=== PATIENT | male | born 1990 | race American Indian/Alaskan Native ===

== ENCOUNTER 2017-12-08 09:29 | Emergency (ER) | payer MEDICAID ==
[2017-12-08 09:38] VITALS: BP 131/93
--- NOTE | 2017-12-08 11:46 | Emergency Department Report ---
ED Lower Extremity HPI - General Chief Complaint: Extremity Injury, Lower Stated Complaint: LEFT FOOT INJURY Time Seen by Provider: 12/08/17 11:40 Source: patient Mode of arrival: Ambulatory Limitations: No Limitations - History of Present Illness MD Complaint: foot injury -: days(s) (9 days ago) Injury: Foot: Left Type of Injury: blunt Place: work Severity: moderate Severity scale (0 -10): 3 - Related Data Previous Rx's Medication Instructions Recorded Last Taken Type Amoxicillin [Trimox CAP] 500 mg PO Q8H #30 capsule 09/16/14 Unknown Rx HYDROcodone/APAP 10-325 [[place] 1 each PO Q6HR PRN #12 tablet 09/16/14 Unknown Rx 10/325] Allergies Allergy/AdvReac Type Severity Reaction Status Date / Time No Known Allergies Allergy Verified 09/16/14 21:18 ED Review of Systems ROS: Stated complaint: LEFT FOOT INJURY Other details as noted in HPI Comment: All other systems reviewed and negative Constitutional: denies: chills Cardiovascular: denies: chest pain Gastrointestinal: denies: abdominal pain ED Past Medical Hx - Past Medical History Previous Medical History?: No - Surgical History Past Surgical History?: No - Social History Smoking Status: Never Smoker Substance Use Type: Alcohol - Medications Home Medications: Home Medications Medication Instructions Recorded Confirmed Last Taken Type Amoxicillin [Trimox CAP] 500 mg PO Q8H #30 capsule 09/16/14 Unknown Rx HYDROcodone/APAP 10-325 [[place] 1 each PO Q6HR PRN #12 tablet 09/16/14 Unknown Rx 10/325] ED Physical Exam - General Limitations: No Limitations General appearance: alert, in no apparent distress - Eye Eye exam: Present: normal appearance - ENT ENT exam: Present: normal exam - Cardiovascular Cardiovascular Exam: Present: regular rate, normal rhythm, normal heart sounds - Extremities Exam Extremities exam: Present: other (left great toe tenderness, no deformity) ED Course Vital Signs 12/08/17 09:34 Temperature 98.9 F Pulse Rate 65 Respiratory 20 Rate Blood Pressure 131/93 O2 Sat by Pulse 97 Oximetry ED Lower Extremity MDM - Radiology Data Radiology results: report reviewed Left great toe x-ray showed no acute abnormality. Critical care attestation.: If time is entered above; I have spent that time in minutes in the direct care of this critically ill patient, excluding procedure time. ED Disposition Clinical Impression: Contusion of great toe, left Disposition: DC-01 TO HOME OR SELFCARE Is pt being admited?: No Condition: Stable Instructions: Foot Contusion (ED) Referrals: PRIMARY CARE, [Primary Care Provider] - 3-5 Days
--- NOTE | 2017-12-08 12:58 | XRay Report ---
LEFT TOES, 3 VIEWS History: Pain. The bony architecture is intact. Bony alignment is normal. No soft tissue abnormalities are seen. The joint spaces appear preserved. IMPRESSION: Normal left toes.
== END 2017-12-08 13:10 | disposition home or self-care (01) ==
LOC: ED 09:29
DX: S90.112A Contusion of left great toe without damage to nail, initial encounter (principal); X58.XXXA Exposure to other specified factors, initial encounter; Y93.89 Activity, other specified; Y92.89 Other specified places as the place of occurrence of the external cause; Y99.8 Other external cause status
CPT/HCPCS: 99283

== ENCOUNTER 2018-11-30 09:26 | Emergency (ER) | payer MEDICAID ==
[2018-11-30 09:42] VITALS: BP 137/82
--- NOTE | 2018-11-30 11:22 | Emergency Department Report ---
ED Upper Extremity Inj HPI - General Chief Complaint: Extremity Injury, Upper Stated Complaint: L WRIST SWOLLEN/PAIN Time Seen by Provider: 11/30/18 11:01 Source: patient Mode of arrival: Ambulatory Limitations: No Limitations - History of Present Illness Initial Comments: 28-year-old male with wrist pain after lifting boxes at work yesterday. Denies fall or any other trauma. Patient reports mild swelling. Denies numbness or tingling in the hand. MD Complaint: Injury to:: left, wrist -: days(s) (1) Place: work Improves With: immobilization Worsens With: movement of extremity Associated Symptoms: denies other symptoms - Related Data Previous Rx's Medication Instructions Recorded Last Taken Type Amoxicillin [Trimox CAP] 500 mg PO Q8H #30 capsule 09/16/14 Unknown Rx HYDROcodone/APAP 10-325 [[place] 1 each PO Q6HR PRN #12 tablet 09/16/14 Unknown Rx 10/325] Naproxen [Naprosyn] 500 mg PO BID #14 tablet 12/08/17 Unknown Rx Naproxen [Naprosyn] 500 mg PO BID #20 tablet 11/30/18 Unknown Rx Allergies Allergy/AdvReac Type Severity Reaction Status Date / Time No Known Allergies Allergy Verified 11/30/18 09:30 ED Review of Systems ROS: Stated complaint: L WRIST SWOLLEN/PAIN Other details as noted in HPI Comment: All other systems reviewed and negative Musculoskeletal: arthralgia Neurological: denies: numbness, paresthesias ED Past Medical Hx - Past Medical History Previous Medical History?: No - Surgical History Past Surgical History?: No - Social History Smoking Status: Never Smoker Substance Use Type: None - Medications Home Medications: Home Medications Medication Instructions Recorded Confirmed Last Taken Type Amoxicillin [Trimox CAP] 500 mg PO Q8H #30 capsule 09/16/14 Unknown Rx HYDROcodone/APAP 10-325 [[place] 1 each PO Q6HR PRN #12 tablet 09/16/14 Unknown Rx 10/325] Naproxen [Naprosyn] 500 mg PO BID #14 tablet 12/08/17 Unknown Rx Naproxen [Naprosyn] 500 mg PO BID #20 tablet 11/30/18 Unknown Rx ED Physical Exam - General Limitations: No Limitations General appearance: alert, in no apparent distress - Head Head exam: Present: atraumatic, normocephalic - Eye Eye exam: Present: normal appearance - ENT ENT exam: Present: mucous membranes moist - Neck Neck exam: Present: normal inspection - Respiratory Respiratory exam: Present: normal lung sounds bilaterally. Absent: respiratory distress - Cardiovascular Cardiovascular Exam: Present: regular rate, normal rhythm - GI/Abdominal GI/Abdominal exam: Absent: distended - Extremities Exam Extremities exam: Present: other (mild left wrist swelling, ROM intact, no deformity noted) - Neurological Exam Neurological exam: Present: alert, oriented X3 - Psychiatric Psychiatric exam: Present: normal affect, normal mood - Skin Skin exam: Present: warm, dry, intact, normal color ED Course Vital Signs 11/30/18 09:41 Temperature 97.5 F L Pulse Rate 63 Respiratory 18 Rate Blood Pressure 137/82 O2 Sat by Pulse 99 Oximetry ED Medical Decision Making - Differential Diagnosis wrist sprain, carpal tunnel Critical care attestation.: If time is entered above; I have spent that time in minutes in the direct care of this critically ill patient, excluding procedure time. ED Disposition Clinical Impression: Left wrist sprain Disposition: DC- TO HOME OR SELFCARE Is pt being admited?: No Condition: Stable Instructions: Wrist Sprain (ED) Prescriptions: Naproxen [Naprosyn] 500 mg PO BID #20 tablet Referrals: MARIAH DIAZ MD [Staff Physician] - 3-5 Days Time of Disposition: 11:22
== END 2018-11-30 11:36 | disposition home or self-care (01) ==
LOC: ED 09:26
DX: S63.502A Unspecified sprain of left wrist, initial encounter (principal); X50.0XXA Overexertion from strenuous movement or load, initial encounter; Y93.89 Activity, other specified; Y92.89 Other specified places as the place of occurrence of the external cause; Y99.0 Civilian activity done for income or pay
CPT/HCPCS: 99283

== ENCOUNTER 2021-05-31 14:45 | Emergency (ER) | payer MEDICAID, OTHER ==
[2021-05-31] MEDS ORDERED: MECLIZINE 25 MG TAB PO ONE (15:11)
--- NOTE | 2021-05-31 15:38 | XRay Report ---
CHEST 2 VIEWS INDICATION / CLINICAL INFORMATION: Shortness of breath, chest pain. COMPARISON: None available. FINDINGS: SUPPORT DEVICES: None. HEART / MEDIASTINUM: A calcified left hilar node is noted. There is mild prominence of the central va sculature. No other significant abnormality. LUNGS / PLEURA: No significant pulmonary abnormality. No significant pleural effusion. No pneumothora x. ADDITIONAL FINDINGS: No significant additional findings. IMPRESSION: Mild prominence of the central vasculature without cardiomegaly or distinct pulmonary edema. No other acute findings. Signer Name: Matt Chicas MD Signed: 05/31/2021 3:34 PM Workstation Name: [id number]
[2021-05-31 15:53] LABS: Basophils % (Auto) 1.2 % (0.0-1.8); Eosinophils % (Auto) 0.8 % (0.0-4.3); Hematocrit 43.2 % (35.5-45.6); Hemoglobin 13.8 gm/dl (11.8-15.2); Lymphocytes # (Auto) 1.1 K/mm3 (1.2-5.4); Lymphocytes % (Auto) 28.7 % (13.4-35.0); Mean Corpuscular HGB Conc 32 % (32-34); Mean Corpuscular Volume 86 fl (84-94); Monocytes # (Auto) 0.4 K/mm3 (0.0-0.8); Monocytes % (Auto) 8.8 % (0.0-7.3); Platelet Count 228 K/mm3 (140-440); Red Blood Count 5.04 M/mm3 (3.65-5.03); Red Cell Distribution Width 13.3 % (13.2-15.2)
[2021-05-31 16:12] VITALS: BP 144/83
[2021-05-31 16:15] LABS: Alanine Aminotransferase 36 units/L (7-56); Albumin 4.7 g/dL (3.9-5); BUN/Creatinine Ratio 8; Blood Urea Nitrogen 10 mg/dL (9-20); Calcium 9.4 mg/dL (8.4-10.2); Hemolysis Index 11
--- NOTE | 2021-05-31 16:33 | Emergency Department Report ---
ED Dizziness HPI - General Chief Complaint: Dizziness Stated Complaint: DIZZINESS Time Seen by Provider: 05/31/21 15:02 Source: patient, family Mode of arrival: Ambulatory Limitations: No Limitations - History of Present Illness Initial Comments: Patient is a 30-year-old male presents emergency room complaints of dizziness that occurred earlier today while he was at work. He states it felt like the room is spinning. He states he then began to feel some chest tightness and shortness of breath. He states it lasted for a couple of hours but then imp roved. He denies any vision changes, numbness, weakness, speech disturbance, gait disturbance, fever, vomiting, diarrhea. PMhx borderline HTN. No allergies to medications. - Related Data Previous Rx's Medication Instructions Recorded Last Taken Type Amoxicillin [Trimox CAP] 500 mg PO Q8H #30 capsule 09/16/14 Unknown Rx HYDROcodone/APAP 10-325 [[place] 1 each PO Q6HR PRN #12 tablet 09/16/14 Unknown Rx 10/325] Naproxen [Naprosyn] 500 mg PO BID #14 tablet 12/08/17 Unknown Rx Naproxen [Naprosyn] 500 mg PO BID #20 tablet 11/30/18 Unknown Rx Meclizine [Antivert] 25 mg PO TID PRN #14 tablet 05/31/21 Unknown Rx Allergies Allergy/AdvReac Type Severity Reaction Status Date / Time No Known Allergies Allergy Verified 11/30/18 09:30 ED Review of Systems ROS: Stated complaint: DIZZINESS Other details as noted in HPI Comment: All other systems reviewed and negative ED Past Medical Hx - Past Medical History Previous Medical History?: Yes Hx HIV: Yes - Surgical History Past Surgical History?: No - Social History Smoking Status: Never Smoker Substance Use Type: Alcohol - Medications Home Medications: Home Medications Medication Instructions Recorded Confirmed Last Taken Type Amoxicillin [Trimox CAP] 500 mg PO Q8H #30 capsule 09/16/14 Unknown Rx HYDROcodone/APAP 10-325 [[place] 1 each PO Q6HR PRN #12 tablet 09/16/14 Unknown Rx 10/325] Naproxen [Naprosyn] 500 mg PO BID #14 tablet 12/08/17 Unknown Rx Naproxen [Naprosyn] 500 mg PO BID #20 tablet 11/30/18 Unknown Rx Meclizine [Antivert] 25 mg PO TID PRN #14 tablet 05/31/21 Unknown Rx ED Physical Exam - General Limitations: No Limitations General appearance: alert, in no apparent distress - Head Head exam: Present: atraumatic, normocephalic - Eye Eye exam: Present: normal appearance, PERRL, EOMI. Absent: periorbital swelling, periorbital tenderness - ENT ENT exam: Present: mucous membranes moist - Respiratory Respiratory exam: Present: normal lung sounds bilaterally. Absent: respiratory distress, wheezes, rales, rhonchi, stridor, chest wall tenderness, accessory muscle use, decreased breath sounds, prolonged expiratory - Cardiovascular Cardiovascular Exam: Present: regular rate, normal rhythm, normal heart sounds. Absent: systolic murmur, diastolic murmur, rubs, gallop - Neurological Exam Neurological exam: Present: alert, oriented X3 - Psychiatric Psychiatric exam: Present: normal affect, normal mood - Skin Skin exam: Present: warm, dry, intact ED Course Vital Signs 05/31/21 05/31/21 05/31/21 14:47 16:12 16:13 Temperature 97.2 F L 97.2 F L Pulse Rate 84 63 Respiratory 16 13 Rate Blood Pressure 147/90 144/83 [Left] O2 Sat by Pulse 96 100 100 Oximetry ED Medical Decision Making - Lab Data Result diagrams: 05/31/21 15:41 05/31/21 15:41 Lab Results 05/31/21 05/31/21 Range/Units 15:41 15:41 WBC 4.0 L (4.5-11.0) K/mm3 RBC 5.04 H (3.65-5.03) M/mm3 Hgb 13.8 (11.8-15.2) gm/dl Hct 43.2 (35.5-45.6) % MCV 86 (84-94) fl MCH 27 L (28-32) pg MCHC 32 (32-34) % RDW 13.3 (13.2-15.2) % Plt Count 228 (140-440) K/mm3 Lymph % (Auto) 28.7 (13.4-35.0) % [place] % (Auto) 8.8 H (0.0-7.3) % Eos % (Auto) 0.8 (0.0-4.3) % Baso % (Auto) 1.2 (0.0-1.8) % Lymph # (Auto) 1.1 L (1.2-5.4) K/mm3 [place] # (Auto) 0.4 (0.0-0.8) K/mm3 Eos # (Auto) 0.0 (0.0-0.4) K/mm3 Baso # (Auto) 0.0 (0.0-0.1) K/mm3 Seg Neutrophils % 60.5 (40.0-70.0) % Seg Neutrophils # 2.4 (1.8-7.7) K/mm3 Sodium 136 L (137-145) mmol/L Potassium 3.6 (3.6-5.0) mmol/L Chloride 101.6 (98-107) mmol/L Carbon Dioxide 23 (22-30) mmol/L Anion Gap 15 mmol/L BUN 10 (9-20) mg/dL Creatinine 1.2 (0.8-1.3) mg/dL Estimated GFR > 60 ml/min BUN/Creatinine Ratio 8 % Glucose 96 (75-100) mg/dL Calcium 9.4 (8.4-10.2) mg/dL Magnesium 2.00 (1.7-2.3) mg/dL Total Bilirubin 0.60 (0.1-1.2) mg/dL AST 31 (5-40) units/L ALT 36 (7-56) units/L Alkaline Phosphatase 71 (35-129) units/L Total Creatine Kinase 723 H (55-170) units/L Troponin T < 0.010 (0.00-0.029) ng/mL NT-Pro-B Natriuret Pep 26.38 (0-450) pg/mL Total Protein 7.5 (6.3-8.2) g/dL Albumin 4.7 (3.9-5) g/dL Albumin/Globulin Ratio 1.7 % Vital Signs 05/31/21 05/31/21 05/31/21 14:47 16:12 16:13 Temperature 97.2 F L 97.2 F L Pulse Rate 84 63 Respiratory 16 13 Rate Blood Pressure 147/90 144/83 [Left] O2 Sat by Pulse 96 100 100 Oximetry - EKG Data EKG shows normal: sinus rhythm, axis, QRS complexes Rate: normal - EKG Data 05/31/21 21:14 mild [place] prolongation [address] elevation appears normal early repolarization, no STEMI - Radiology Data Radiology results: report reviewed Ordering Physician: EVANGELISTA SIMEON Date of Service: 05/31/21 Procedure(s): XR chest routine 2V Accession Number(s): [id number] cc: EVANGELISTA SIMEON Fluoro Time In Minutes: CHEST 2 VIEWS INDICATION / CLINICAL INFORMATION: Shortness of breath, chest pain. COMPARISON: None available. FINDINGS: SUPPORT DEVICES: None. HEART / MEDIASTINUM: A calcified left hilar node is noted. There is mild prominence of the central vasculature. No other significant abnormality. LUNGS / PLEURA: No significant pulmonary abnormality. No significant pleural effusion. No pneumothorax. ADDITIONAL FINDINGS: No significant additional findings. IMPRESSION: Mild prominence of the central vasculature without cardiomegaly or distinct pulmonary edema. No other acute findings. Signer Name: Matt Chicas MD Signed: 05/31/2021 3:34 PM Workstation Name: [id number] Transcribed By: [place] Dictated By: Matt Chicas MD Electronically Authenticated By: Matt Chicas MD Signed Date/Time: 05/31/211533 DD/ 32 TD/TT: - Medical Decision Making Patient is a 30-year-old male presents emergency room complaints of dizziness that occurred earlier today while he was at work. He states it felt like the room is spinning. He states he then began to feel some chest tightness and shortness of breath. He states it lasted for a couple of hours but then improved. He denies any vision changes, numbness, weakness, speech disturbance, gait disturbance, fever, vomiting, diarrhea. PMhx borderline HTN. No allergies to medications. Vitals are stable. No focal neuro deficits on exam. Patient states that he is currently asymptomatic and has no dizziness, chest tightness or shortness of breath. EKG with mildly prolonged [place] interval and normal early repolarization. Chest x-ray: Mild prominence of the central vasculature without cardiomegaly or distinct pulmonary edema. No other acute findings. BNP is normal. troponin is negative. Elevation of CK, encouraged oral rehydration. Patient states that he does not drink enough water, discussed the importance of increasing his oral water intake. Ordered meclizine for dizziness, patient declines and states that he is asymptomatic and does not want any medication. Discussed the importance of outpatient primary care follow-up. Discussed return precautions. Advised patient Please take medication as prescribed as needed. Increase your water intake over the next several days. Follow-up with your primary care doctor for reexamination. Return to emergency room for any new or worsening symptoms. Critical care attestation.: If time is entered above; I have spent that time in minutes in the direct care of this critically ill patient, excluding procedure time. ED Disposition Clinical Impression: Dizziness, Chest tightness, SOB (shortness of breath) Disposition: 01 HOME / SELF CARE / HOMELESS Is pt being admited?: No Does the pt Need Aspirin: No Condition: Stable Instructions: Dizziness Additional Instructions: Please take medication as prescribed as needed. Increase your water intake over the next several days. Follow-up with your primary care doctor for reexamination. Return to emergency room for any new or worsening symptoms. Prescriptions: Meclizine [Antivert] 25 mg PO TID PRN #14 tablet PRN Reason: dizziness Referrals: LAUREEN TAVARES MD [Staff Physician] - 2-3 Days [facility] [Provider Group] - 2-3 Days Time of Disposition: 17:06 Print Language: TUVALUAN
--- NOTE | 2021-06-02 08:54 | Electrocardiograph Report ---
[facility] Test Date: 2021-05-31 Test Time: 15:51:56 Pat Name: CHARLOTTE MOBLEY Department: Room: Gender: M Family Psychologist: JOSIAH : 1990 Requested By: MODESTO SALEH Order Number: [id number] Reading MD: Kyaw Sweeney Measurements Intervals [place] Rate: 59 P: 60 AK: 224 QRS: 77 QRSD: 88 T: 52 QT: 410 QTc: 406 Interpretive Statements Sinus rhythm Prolonged AK interval ST elev, probable normal early repol pattern No previous ECG available for comparison Electronically Signed On 06-02-2021 8:53:38 EST by Kyaw Sweeney
== END 2021-05-31 17:25 | disposition home or self-care (01) ==
LOC: ED 14:45
DX: R42 Dizziness and giddiness (principal); R07.9 Chest pain, unspecified; R06.02 Shortness of breath; F10.20 Alcohol dependence, uncomplicated
CPT/HCPCS: 36415; 71046; 80053; 82550; 83735; 83880; 84484; 85025; 93005; 99284